=== PATIENT | female | born 1965 | race Two or more races ===

== ENCOUNTER 2024-02-21 13:59 | Emergency (ER) | payer BC, OTHER ==
[~2024-02-21] VITALS: Ht 160 cm; Wt 58.5 kg
[2024-02-21 15:15] VITALS: BP 150/84; PULSE 94; RESP 20; TEMP 99.5; O2SAT 96
[2024-02-21] MEDS: KETOROLAC TROMETH 60MG/2ML VIAL IM ONE (16:01)
[2024-02-21] MEDS ORDERED: NAPR-746 PO (16:37)
[2024-02-21] MEDS ORDERED: CYCL-839 PO (16:37)
== END 2024-02-21 16:50 | disposition home or self-care (01) ==
LOC: ER 13:59
DX: S29.012A Strain of muscle and tendon of back wall of thorax, initial encounter (principal); Z79.899 Other long term (current) drug therapy; Z88.8 Allergy status to other drugs, medicaments and biological substances; X58.XXXA Exposure to other specified factors, initial encounter; Y93.89 Activity, other specified; Y92.89 Other specified places as the place of occurrence of the external cause; Y99.8 Other external cause status
CPT/HCPCS: 71046; 96372; 99283; J1885